=== PATIENT | female | born 1965 | race Caucasian/White ===

== ENCOUNTER → 2016-06-18 13:45 | Outpatient (CLI) | payer BC ==
[2015-02-06 10:49] VITALS: BMI 27.4
[2016-06-18 15:29] LABS: HEMATOCRIT 41.6 % (36.0-48.0); HEMOGLOBIN 14.2 g/dL (12-16); MCH 32.3 pg (26.0-34.0); MCHC 34.1 g/dL (31.0-37.0); MCV 94.8 fL (80.0-100.0); MEAN PLATELET VOLUME 11.6 fL (7.4-10.4); RBC 4.39 10x6/uL (4.00-5.40); RDW 12.2 % (11.5-14.5)
[2016-06-18 15:42] LABS: ALBUMIN 3.7 g/dL (3.4-5.0); ALKALINE PHOSPHATASE 75 U/L (46-116); ALT (SGPT) 32 U/L (10-68); BILIRUBIN - TOTAL 0.49 mg/dL (0.2-1.3); CALC OSMOLALITY 281 mosm/kg (275-300); CALCIUM 9.1 mg/dL (8.5-10.1); CHLORIDE - SERUM 106 mmol/L (98-107); CREATININE - SERUM 0.8 mg/dL (0.6-1.3); GLUCOSE 95 mg/dL (74-106); POTASSIUM - SERUM 3.7 mmol/L (3.5-5.1); PROTEIN - SERUM 7.5 g/dL (6.4-8.2); SODIUM 141 mmol/L (136-145); UREA NITROGEN 15 mg/dL (7-18); eGFR NON AFRICAN AMERICAN 81 mL/min (90-120)
== END | disposition home or self-care (01) ==
LOC: D.LABREF 13:45
PROVIDERS: Orthopaedic Surgery
DX: Z00.00 Encounter for general adult medical examination without abnormal findings (principal); B35.1 Tinea unguium

== ENCOUNTER → 2017-06-07 09:06 | Outpatient (CLI) | payer BC ==
[2015-02-06 10:49] VITALS: BMI 27.4
== END | disposition home or self-care (01) ==
LOC: D.MRI 09:06
DX: M54.12 Radiculopathy, cervical region (principal)

== ENCOUNTER 2018-10-12 09:46 | Day surgery (SDC) | payer BC ==
[~2018-10-12] VITALS: Ht 172.7 cm; Wt 106.1 kg
[2018-10-12 10:55] VITALS: BP 137/78; Ht 172.7 cm; Wt 106.1 kg
[2018-10-12 10:57] LABS: HEMATOCRIT 44.6 % (36.0-48.0); HEMOGLOBIN 15.7 g/dL (12-16); MCH 33.3 pg (26.0-34.0); MCHC 35.2 g/dL (31.0-37.0); MCV 94.5 fL (80.0-100.0); MEAN PLATELET VOLUME 11.7 fL (7.4-10.4); RBC 4.72 10x6/uL (4.00-5.40); RDW 12.6 % (11.5-14.5); WBC 11.3 10x3/uL (4.8-10.8)
--- NOTE | 2018-10-12 14:40 | NUR ---
PATIENT AMBULATING AROUND ROOM WITH CRUTCHES INDEPENDENTLY, WITHOUT DIZZINESS OR UNSTEADINESS. AMBULATES TO BATHROOM AND VOIDS IN TOILET. DRESSING IN PERSONAL CLOTHING INDEPENDENTLY
[2018-10-12] MEDS ORDERED: MEPERIDINE HCL50 MG PO (14:42)
--- NOTE | 2018-10-12 14:58 | NUR ---
DISCHARGE INSTRUCTIONS REVIEWED WITH PATIENT, DISCHARGED HOME VIA WHEELCHAIR TO PRIVATE VEHICLE. DR MENDEZ STATES PATIENT DOES NOT NEED FOLLOW UP APPOINTMENT WITH HIM PATIENT IS DR MENDEZ'S SPOUSE
--- NOTE | 2018-10-18 14:04 | OP ---
PATIENT NAME: TRAM MENDEZ MEDICAL RECORD: [id number] :69 LOCATION:D.OPS ADMISSION DATE: SURGEON: KARLA MENDEZ MD DATE OF OPERATION: 10/12/2018 PREOPERATIVE DIAGNOSIS: Medial meniscus tear of the right knee. POSTOPERATIVE DIAGNOSES: Medial meniscus tear of the right knee plus lateral femoral condylar defect. PROCEDURES: 1. Arthroscopic partial medial meniscectomy of the right knee. 2. Abrasion chondroplasty of the medial femoral condyle. SURGEON: Karla Mendez MD ANESTHESIA: General. INTRAOPERATIVE COMPLICATIONS: None. SUMMARY OF PATHOLOGIC FINDINGS: The patient had a sagittal split tear of the medial meniscus consistent with the preoperative MRI. Furthermore, she had a condylar defect on the lateral aspect of the lateral femoral condyle just at the weightbearing surface interface that required debridement and abrasion chondroplasty. OPERATIVE SUMMARY IN DETAIL: After obtaining the appropriate preoperative orthopedic surgery consent as well as anesthetic consultation, evaluation and clearance, the patient was brought to the operating room and placed on the operating table in supine position. After general laryngeal mask airway was administered, tourniquet was placed about the proximal aspect of the right lower extremity. Right lower extremity was then prepped and draped in routine sterile fashion. The leg was elevated and exsanguinated. Tourniquet was inflated to 300 mmHg. Routine inferolateral portal was established followed by superomedial portal and inferomedial portal. Diagnostic arthroscopy did reveal the patient to have a split sagittal tear of the medial meniscus. This was debrided back to stable meniscal elements using the 4.0 resector along with meniscotomes. The patient had maintained a good root attachment. Upon evaluating the lateral compartment, evidence of previous lateral partial meniscectomy were used; however, the residual was stable. There was no chondromalacia in the lateral compartment. There was one small area of a chondral defect. Chondral defect was then cleaned up with the resector to make a good transition and then the power pick from [employer] was utilized to drill multiple holes for abrasion chondroplasty. Having completed this, the knee was insufflated with 30 cc of 0.25% Marcaine with epinephrine and 40 mg of Depo-Medrol. Arthroscopy portals were closed in routine interrupted fashion using 4-0 Prolene. Sterile dressings were applied. The patient was awakened and taken to the recovery room in stable condition. All final needle and sponge counts were correct. TRANSINT:[id number] Voice Confirmation ID: [id number] DOCUMENT ID: [id number] OPERATIVE REPORT [id number] TARM MENDEZ MD, KARLA MURPHY at 1404 CC: [id number] DICTATION DATE: 10/17/18 0858 GAME SHOW HOST: 10/17/18 1100 [facility] [place] 10/12/18 [id number] [place] [address]
== END 2018-10-12 14:58 | disposition home or self-care (01) ==
LOC: D.OPS 09:46
PROVIDERS: ATTEND Orthopaedic Surgery
DX: S83.241A Other tear of medial meniscus, current injury, right knee, initial encounter (principal); M23.91 Unspecified internal derangement of right knee; Z01.812 Encounter for preprocedural laboratory examination

== ENCOUNTER 2019-08-04 13:44 | Observation (INO) | payer BC ==
[2019-08-04] VITALS (12 sets, daily range): BP systolic 93–118; BP diastolic 51–80; Ht 172.7 cm; Wt 113.7 kg
[~2019-08-04] VITALS: Ht 172.7 cm; Wt 113.7 kg
[~2019-08-04 13:44] MED LIST: MEPERIDINE HCL50 MG PO
[2019-08-04 14:03] LABS: BASOPHILS 0.1 % (0-2); EOSINOPHILS 2.5 % (0-7); HEMATOCRIT 45.3 % (36.0-48.0); IMMATURE GRANULOCYTES 0.3 % (0-5); LYMPHOCYTES 37.1 % (15-50); MCH 31.6 pg (26.0-34.0); MCHC 33.1 g/dL (31.0-37.0); MCV 95.6 fL (80.0-100.0); MEAN PLATELET VOLUME 11.1 fL (7.4-10.4); MONOCYTES 9.2 % (2-11); NEUTROPHILS 50.8 % (40-80); RBC 4.74 10x6/uL (4.00-5.40); RDW 12.4 % (11.5-14.5); WBC 7.3 10x3/uL (4.8-10.8)
[2019-08-04 14:08] LABS: PLATELET COUNT 244 10x3/uL (130-400)
--- NOTE | 2019-08-04 14:15 | NUR ---
PT REPORTS CHEST PAIN IS 4/10 AT THIS TIME. NO NEEDS VERBALIZED. WILL CON'T TO MONITOR PATIENT FOR CHANGES.
[2019-08-04 14:20] LABS: CALC OSMOLALITY 276 mosm/kg (275-300); CARBON DIOXIDE 27.6 mmol/L (21.0-32.0); CHLORIDE - SERUM 105 mmol/L (98-107); GLUCOSE 125 mg/dL (74-106); POTASSIUM - SERUM 4.1 mmol/L (3.5-5.1); SODIUM 138 mmol/L (136-145); UREA NITROGEN 12 mg/dL (7-18); eGFR NON AFRICAN AMERICAN 62 mL/min (90-120)
[2019-08-04 14:36] LABS: ALBUMIN 3.7 g/dL (3.4-5.0); ALKALINE PHOSPHATASE 80 U/L (30-120); ALT (SGPT) 39 U/L (10-68); BILIRUBIN - TOTAL 0.42 mg/dL (0.2-1.3); CKMB 1.4 U/L (0.0-3.6); CREATINE KINASE 150 UL (21-215); MAGNESIUM - SERUM 2.3 mg/dL (1.8-2.4); PRO BNP 16 pg/mL (0-125); PROTEIN - SERUM 7.7 g/dL (6.4-8.2)
--- NOTE | 2019-08-04 14:41 | NUR ---
DR. BARNES AT BEDSIDE AT THIS TIME.
[2019-08-04 14:58] LABS: TROPONIN-I < 0.017 ng/mL (0.000-0.060)
[2019-08-04 15:06] LABS: APTT 29.9 SECONDS (22.8-39.4); INR 0.93 (0.85-1.17); PROTIME 12.4 SECONDS (11.6-15.0)
--- NOTE | 2019-08-04 19:00 | NUR ---
PT ASSESSMENT COMPLETED AT THIS TIME, NO CHANGES NOTED FROM NURSE REPORT, VSS, WILL MONITOR FOR CHANGES
[2019-08-04 20:35] LABS: CKMB 0.9 U/L (0.0-3.6); CREATINE KINASE 117 UL (21-215); TROPONIN-I < 0.017 ng/mL (0.000-0.060)
--- NOTE | 2019-08-04 21:00 | NUR ---
PT RESTING IN BED WATCHING TV, PT WAS GIVEN SOME SODA TO DRINK PRE REQUEST, PT REATES PAIN AROUND 07/09, NO DISTRESS NOTED, WILL MONITOR FOR CHANGES
--- NOTE | 2019-08-04 23:00 | NUR ---
PT REASSESSMENT COMPLETED AT THIS TIME, NO CHANGES NOTED FROM PREVIOUS EXAM, VSS, WILL MONITOR FOR CHANGES
[2019-08-05] VITALS (10 sets, daily range): BP systolic 86–135; BP diastolic 49–86
--- NOTE | 2019-08-05 01:00 | NUR ---
PT RESTING WITH EYES CLOSED, RESP EVEN AND NON-LABORED, VSS, WILL MONITOR FOR CHANGES
[2019-08-05 02:13] LABS: BASOPHILS 0.2 % (0-2); EOSINOPHILS 2.1 % (0-7); HEMATOCRIT 40.2 % (36.0-48.0); HEMOGLOBIN 13.1 g/dL (12-16); IMMATURE GRANULOCYTES 0.2 % (0-5); LYMPHOCYTES 36.9 % (15-50); MCH 31.6 pg (26.0-34.0); MCHC 32.6 g/dL (31.0-37.0); MCV 97.1 fL (80.0-100.0); MEAN PLATELET VOLUME 10.7 fL (7.4-10.4); MONOCYTES 7.1 % (2-11); NEUTROPHILS 53.5 % (40-80); PLATELET COUNT 228 10x3/uL (130-400); RBC 4.14 10x6/uL (4.00-5.40); RDW 12.8 % (11.5-14.5); WBC 8.6 10x3/uL (4.8-10.8)
[2019-08-05 02:37] LABS: ALBUMIN 3.1 g/dL (3.4-5.0); ALKALINE PHOSPHATASE 63 U/L (30-120); ALT (SGPT) 33 U/L (10-68); CALC OSMOLALITY 275 mosm/kg (275-300); CALCIUM 8.3 mg/dL (8.5-10.1); CARBON DIOXIDE 25.3 mmol/L (21.0-32.0); CHLORIDE - SERUM 107 mmol/L (98-107); CKMB 0.6 U/L (0.0-3.6); CREATINE KINASE 104 UL (21-215); CREATININE - SERUM 1.1 mg/dL (0.6-1.3); GLUCOSE 95 mg/dL (74-106); POTASSIUM - SERUM 4.2 mmol/L (3.5-5.1); PROTEIN - SERUM 6.4 g/dL (6.4-8.2); SODIUM 138 mmol/L (136-145); TROPONIN-I < 0.017 ng/mL (0.000-0.060); UREA NITROGEN 13 mg/dL (7-18); eGFR NON AFRICAN AMERICAN 55 mL/min (90-120)
--- NOTE | 2019-08-05 03:00 | NUR ---
PT REASSESSMENT COMPLETED AT THIS TIME, NO CHANGES NOTED FROM PREVIOUS EXAM, VSS, WILL MONITOR FOR CHANGES
--- NOTE | 2019-08-05 05:00 | NUR ---
PT RESTING WITH EYES CLOSED, NO DISTRESS NOTED, VSS, WILL MONITOR FOR CHANGES
[2019-08-05 08:48] LABS: CKMB 0.6 U/L (0.0-3.6); CREATINE KINASE 98 UL (21-215)
[2019-08-05 08:49] LABS: TROPONIN-I < 0.017 ng/mL (0.000-0.060)
--- NOTE | 2019-08-05 10:50 | NUR ---
0715-PT PLACED NPO FOR POSSIBLE US OF ABD-STATES CHEST DISCOMFORT TO R ANTERIOR CHEST WALL WITH INSPIRATION ONLY-DENIES AND ABD PAIN OR DISCOMFORT-R IV AC MARKED POSIITONAL-WITH MOVEMENT -STATED NOT ABLE TO SLEEP DUE TO FREQUENT ALARM-IV IN L HAND STARTED PER PT REQUEST WITH GOOD RETURN-R AC D/C 0730-PT STATED SEVERE HEADACHE-12/09-EXPERIENCES FREQUENTLY-TYLENOL PO GIVEN WITH SIP H2O- 814-DR BARNES AT [facility] -INFORMED OF NOTED CHEST PAIN DISCOMFORT WITH INSPIRATION 944-DR WEBSTER CALLED UNIT -ORDER RECIEVED AND NOTED -MAINTAINED NPO US OF ABD
--- NOTE | 2019-08-05 12:31 | NUR ---
DR WEBSTER IN UNIT-REVIEWED US GALLBLADDER-RECOMMENDED DISCHARGE HOME WITH OUT PATIENT FOLLOW UP-DR BARNES NOTIFIED OF SAME-ORDER RECIEVED FOR DISCHARGE HOME-L IV D/C'D-LUNCH TRAY [id number] TO MAIN EXIT BY VIA WHEELCHAIR
--- NOTE | 2019-08-06 08:42 | MORECARE ---
CASE MANAGEMENT DISCHARGE SUMMARY PATIENT: TRAM MENDEZ UNIT: [id number] ADM DATE: 08/04/19 AGE: 53 : [birth year] SEX: F ROOM/BED: [facility] AUTHOR: LAZARA ROSALES PHYSICIAN: REFERRING PHYSICIAN: FALLON BARNES M.D. DATE OF SERVICE: 08/06/19 Discharge Plan Patient Name: TRAM MENDEZ Facility: [facility]:[place] : 1965 Planned Disposition: Anticipated Discharge Date: Discharge Date: 08/05/2019 Expected LOS: Initial Reviewer: [email or web address] Initial Review Date: 08/04/2019 Generated: 08/06/19 9:41 am Patient Name: TRAM MENDEZ Page [id number] at 0842 All edits/amendments must be made on the electronic document DICTATION DATE: 08/06/19840 WASTE TREATMENT OPERATOR: STEPHANIE 08/06/19840 RPT#: [id number] DC DATE:08/05/19 STATUS: DIS IN [facility] [address] [place] [address] END OF REPORT
== END 2019-08-05 12:39 | disposition home or self-care (01) ==
LOC: D.ER 13:44 → D.CVICU 14:16 → OBSVTIME 15:20 → D.CVICU 08-05 12:39
PROVIDERS: Family Medicine; ADMIT Internal Medicine Cardiovascular Disease; ATTEND Internal Medicine Cardiovascular Disease
DX: I47.1 Supraventricular tachycardia (principal); M94.0 Chondrocostal junction syndrome [Tietze]